=== PATIENT | female | born 2000 | race Caucasian/White ===

== ENCOUNTER 2021-05-02 16:36 | Emergency (ER) | payer OTHER ==
[~2021-05-02] VITALS: Ht 152.4 cm; Wt 45.4 kg
[2021-05-02] MEDS ORDERED: MAPAP500 MG/15 PO (20:19)
[2021-05-02] MEDS ORDERED: CEFADROXIL500 MG/5 M PO (20:19)
[2021-05-02] MEDS ORDERED: NASAL MIST126 ML (20:24)
== END 2021-05-02 21:10 | disposition home or self-care (01) ==
LOC: ER 16:36
DX: O23.42 Unspecified infection of urinary tract in pregnancy, second trimester (principal); O26.892 Other specified pregnancy related conditions, second trimester; E87.6 Hypokalemia; Z34.02 Encounter for supervision of normal first pregnancy, second trimester

== ENCOUNTER 2021-09-19 16:18 | Inpatient (IN) | payer OTHER ==
[~2021-09-19] VITALS: Ht 152.4 cm; Wt 52.2 kg
[~2021-09-19 16:18] MED LIST: CEFADROXIL500 MG/5 M PO; MAPAP500 MG/15 PO; NASAL MIST126 ML
[2021-09-19] MEDS ORDERED: SYNTHROID137 MCG PO (17:18)
[2021-09-19] MEDS ORDERED: SYNTHROID150 MCG PO (20:48)
[2021-09-26] MEDS ORDERED: NIFEDIPINE20 MG PO (07:22)
[2021-09-26] MEDS ORDERED: Ferro-Plex CAPLET PO (07:22)
== END 2021-09-26 10:38 | disposition home or self-care (01) | DRG 833 ==
LOC: OBS/DEL 16:18 → LDR 20:06 → OB/GYN 09-22 10:04
PROVIDERS: ADMIT Obstetrics & Gynecology; ATTEND Obstetrics & Gynecology
PROC: 4A1HXFZ Monitoring of Products of Conception, Cardiac Rhythm, External Approach (ICD-10-PCS; 2021-09-19)
PROC: BY4FZZZ Ultrasonography of Third Trimester, Single Fetus (ICD-10-PCS; principal; 2021-09-22)
PROC: 30233N1 Transfusion of Nonautologous Red Blood Cells into Peripheral Vein, Percutaneous Approach (ICD-10-PCS; 2021-09-25)
DX: O99.013 Anemia complicating pregnancy, third trimester (principal); D64.9 Anemia, unspecified; O26.853 Spotting complicating pregnancy, third trimester; O99.283 Endocrine, nutritional and metabolic diseases complicating pregnancy, third trimester; E03.9 Hypothyroidism, unspecified; Z3A.34 34 weeks gestation of pregnancy

== ENCOUNTER 2021-10-28 04:27 | Inpatient (IN) | payer OTHER ==
[~2021-10-28] VITALS: Ht 152.4 cm; Wt 2.3 kg
[~2021-10-28 04:27] MED LIST changes: +Ferro-Plex CAPLET PO; +NIFEDIPINE20 MG PO; +SYNTHROID137 MCG PO; +SYNTHROID150 MCG PO
[2021-10-31] MEDS ORDERED: SYNTHROID150 MCG (08:46)
[2021-10-31] MEDS ORDERED: VITAMIN D325 MC2 (08:46)
[2021-10-31] MEDS ORDERED: TIVICAY50 MG (08:46)
[2021-10-31] MEDS ORDERED: EMTRICITABINE-1 EACH (08:46)
== END 2021-10-31 15:08 | disposition home or self-care (01) | DRG 788 ==
LOC: LDR 04:27 → OB/GYN 04:27 → O/R 10:31 → OB/GYN 10:42
PROVIDERS: ADMIT Obstetrics & Gynecology; ATTEND Obstetrics & Gynecology
PROC: 4A1HXFZ Monitoring of Products of Conception, Cardiac Rhythm, External Approach (ICD-10-PCS; 2021-10-28)
PROC: 10D00Z1 Extraction of Products of Conception, Low, Open Approach (ICD-10-PCS; principal; 2021-10-28 07:00)
DX: O98.72 Human immunodeficiency virus [HIV] disease complicating childbirth (principal); Z21 Asymptomatic human immunodeficiency virus [HIV] infection status; O48.0 Post-term pregnancy; O99.02 Anemia complicating childbirth; D64.9 Anemia, unspecified; O99.284 Endocrine, nutritional and metabolic diseases complicating childbirth; E03.9 Hypothyroidism, unspecified; Z3A.40 40 weeks gestation of pregnancy; Z37.0 Single live birth

== ENCOUNTER 2023-06-18 12:41 | Emergency (ER) | payer OTHER ==
[~2023-06-18] VITALS: Ht 177.8 cm; Wt 43.1 kg
[~2023-06-18 12:41] MED LIST changes: +EMTRICITABINE-1 EACH; +SYNTHROID150 MCG; +TIVICAY50 MG; +VITAMIN D325 MC2
[2023-06-18] MEDS ORDERED: PEPCID AC20 MG PO (20:15)
[2023-06-18] MEDS ORDERED: CIPRO500 MG PO (20:15)
[2023-06-18] MEDS ORDERED: LEVSIN/SL0.125 MG SL (20:15)
[2023-06-18] MEDS ORDERED: ZOFRAN8 MG PO (20:15)
== END 2023-06-18 20:41 | disposition home or self-care (01) ==
LOC: ER 12:41
DX: K52.89 Other specified noninfective gastroenteritis and colitis (principal)

== ENCOUNTER 2025-11-02 11:53 | Emergency (ER) | payer OTHER ==
[~2025-11-02] VITALS: Ht 152.4 cm; Wt 49.9 kg
[~2025-11-02 11:53] MED LIST changes: +CIPRO500 MG PO; +LEVSIN/SL0.125 MG SL; +PEPCID AC20 MG PO; +ZOFRAN8 MG PO
[2025-11-02 12:11] VITALS: BP 101/64; O2SAT 100
[2025-11-02] MEDS ORDERED: CLINDAMYCI75 MG/5 M1 (12:11)
[2025-11-02] MEDS ORDERED: CEFTRIAXONE SODIUM 2,000 MG VIAL IV STA (13:23)
[2025-11-02] MEDS ORDERED: KETOROLAC TROMETHAMINE 15 MG VIAL IV STA (13:24)
[2025-11-02] MEDS ORDERED: KETOROLAC TROMETHAMINE 30 MG VIAL ONE (14:05)
[2025-11-02] MEDS ORDERED: CEFTRIAXONE SODIUM 2,000 MG VIAL ONE (14:05)
[2025-11-02 14:27] LABS: BASO % 0.3 % (0.1-1.2); EOS # 0.03 (0.04-0.54); EOS % 0.4 % (0.7-7.0); LYMPH # 0.92 (1.18-3.74); LYMPH % 13.3 % (19.3-53.1); MEAN PLATELET VOLUME 9.40 fl (9.4-12.4); MONO # 0.43 (0.24-0.82); MONO % 6.2 % (4.7-12.5); NEUT # 5.50 (1.56-6.13); NEUT % 79.7 % (34.0-71.1); RED CELL DISTRIBUTION WIDTH 12.5 % (11.6-14.4)
[2025-11-02 14:50] LABS: ALT/SGPT 14.0 U/L (12-78); AST/SGOT 15.0 U/L (15-37); BILIRUBIN TOTAL 0.84 mg/dL (0.3-1.2); BUN CREA RATIO 13.0 (7.0-25.0); CREATININE SERUM 0.52 mg/dL (0.55-1.02); GFR 141.45; GLOBULINA 5.5 G/DL (2.4-3.5); GLUCOSE FASTING 83.0 mg/dL (65-100); OSMOLALITY SERUM 275.0 MOSM/KG (275-295)
== END 2025-11-02 15:50 | disposition home or self-care (01) ==
LOC: ER 11:54
PROVIDERS: General Practice
DX: K05.10 Chronic gingivitis, plaque induced (principal)